=== PATIENT | male | born 1985 | race Caucasian/White ===

== ENCOUNTER → 2016-11-17 | Outpatient (CLI) | payer BC ==
[2016-11-17 13:15] LABS: SEMEN TIME OF COLLECTION 1215
[2016-11-17 13:16] LABS: DAYS OF ABSTINENCE 3; METHOD OF COLLECTION MASTURBATION; TYPE OF SPECIMEN CONTAINER STERILE CUP
[2016-11-17 13:17] LABS: SEMEN COLOR GRAY OR GRAY-WHITE (GRY/GRYWHTE); SEMEN VOLUME 1.6 ML (>1.5)
== END | disposition home or self-care (01) ==
LOC: C.LAB 12:59
PROVIDERS: ATTEND Specialist
DX: N46.9 Male infertility, unspecified (principal)